=== PATIENT | female | born 1985 | race Two or more races ===

== ENCOUNTER 2022-09-06 01:26 | Emergency (ER) | payer MEDICAID, OTHER ==
[~2022-09-06] VITALS: Ht 154.9 cm; Wt 81.0 kg
[2022-09-06] MEDS ORDERED: diphenhdrAMINE HCL 50 MG/1 ML VL IV ONE (01:45)
[2022-09-06] MEDS ORDERED: methylPREDNISolone SOD SUCC 125 MG/2 ML VL IV ONE (01:45)
[2022-09-06] MEDS ORDERED: PRED20TA2 PO (03:00)
[2022-09-06] MEDS ORDERED: HYDR-3682 PO (03:00)
[2022-09-06 04:30] VITALS: BP 103/61
== END 2022-09-06 04:43 | disposition home or self-care (01) ==
LOC: ER 01:26
DX: L50.9 Urticaria, unspecified (principal)
CPT/HCPCS: 96374; 96375; 99284; J1200; J2930